=== PATIENT | male | born 1960 | race Caucasian/White ===

== ENCOUNTER 2020-06-04 15:07 | Emergency (ER) | payer OTHER ==
[~2020-06-04] VITALS: Ht 185.4 cm; Wt 90.9 kg
[2020-06-04 19:17] LABS: CLARITY,URINE CLEAR; COLOR,URINE ORANGE
[2020-06-04 19:24] LABS: BACTERIA,URINE 0 /HPF (0-FEW); RBC,URINE 0 /HPF (0-2); WBC,URINE 0 /HPF (0-4)
[2020-06-04] MEDS ORDERED: TAMS0.4C97 PO (19:49)
--- NOTE | 2020-06-04 19:49 | PHYS DOC ---
Past Medical History Past Medical History: No Pertinent History Past Surgical History: No Surgical History Smoking Status: Never Smoker Alcohol Use: Occasionally Drug Use: None General Adult EDM: Chief Complaint: URINARY RETENTION HPI: HPI: Patient is a 59 year old male who presents with urinary retention. Patient describes a progressive decrease in urinary stream with complete cessation of stream beginning last night. He describes 9/10 pain currently with no relief after taking Aleve and over the counter Azo. This has never happened to him before and he has no history of prostate issues. He reports having his last prostate exam years ago. Denies fever/chills. Review of Systems: Review of Systems: Constitutional: Denies fever or chills HENT: Denies nasal congestion or sore throat Respiratory: Denies cough or shortness of breath Cardiovascular: Denies chest pain or palpitations GI: Reports abdominal pain and nausea, denies vomiting : Reports dysuria, denies hematuria Musculoskeletal: Denies back pain or joint pain Neurologic: Denies headache, focal weakness or sensory changes Complete systems were reviewed and found to be within normal limits, except as documented in this note. Allergies: Allergies: Allergies Coded Allergies Type Severity Reaction Last Updated Verified No Known Drug Allergies 06/04/20 No Physical Exam: PE: Constitutional: Well developed, well nourished, no acute distress, non-toxic appearance HENT: Normocephalic, atraumatic Eyes: Conjunctiva normal, no discharge Neck: Normal range of motion, no tenderness, supple Lungs & Thorax: No respiratory distress, equal chest rise and fall Abdomen: Distended suprapubic region which is discreetly tender to palpation Skin: Warm, dry, no erythema, no rash Back: No tenderness, no CVA tenderness Extremities: No tenderness, ROM intact, no edema Neurologic: Alert and oriented X 3, normal motor function, normal sensory function, no focal deficits noted Psychologic: Affect normal, judgment normal Current Patient Data: Labs: Laboratory Tests Test 06/04/20 19:10 Urine Collection Type Unknown Urine Color [place] Urine Clarity Clear Urine pH (<5.0-8.0) Urine Specific [place] (1.000-1.030) Urine Protein mg/dL (NEG-TRACE) Urine Glucose (UA) mg/dL (NEG) Urine Ketones (Stick) mg/dL (NEG) Urine Blood (NEG) Urine Nitrite (NEG) Urine Bilirubin (NEG) Urine Urobilinogen Dipstick mg/dL (0.2 mg/dL) Urine Leukocyte Esterase (NEG) Urine RBC 0 /HPF (0-2) Urine WBC 0 /HPF (0-4) Urine Squamous Epithelial Cells None /LPF Urine Bacteria 0 /HPF (0-FEW) Urine Mucus Slight /LPF Vital Signs: Vital Signs Date Time Temp Pulse Resp B/P (MAP) Pulse Ox O2 Delivery O2 Flow Rate FiO2 06/04/20 15:09 98.0 90 16 150/80 (103) 99 Room Air 98.0 Course & Med Decision Making: Course & Med Decision Making Pertinent Labs reviewed. (See chart for details) Patient is a 59 year old male who presents with urinary retention. Bladder scan demonstrates +999mL of fluid present. Baltazar catheter placed with 1300mL return of urine. Baltazar converted to leg bag. Flomax initiated. UA without evidence of infection. Patient stable for discharge with outpatient follow-up with PCP and urologist. Discussed findings and plan with patient, who acknowledges understanding and agreement. Lanny Disclaimer: Lanny Disclaimer: This electronic medical record was generated, in whole or in part, using a voice recognition dictation system. Departure Departure Impression: Primary Impression: Acute urinary retention Disposition: 01 DC HOME SELF CARE/HOMELESS Condition: STABLE Patient Instructions: Baltazar Catheter Care, Adult, Urinary Retention, Acute, Male, [id number] Additional Instructions: Please follow closely with your family physician. You may benefit from following with an urologist. Check with your insurance or family physician for a referral. May use over the counter Tylenol and/or Ibuprofen for pain or discomfort. Scripts Tamsulosin Hcl (FLOMAX) 0.4 Mg Cap.er.24h 1 CAP PO DAILY, #20 CAP Prov: KORY CARLIN DO 06/04/20 KORY CARLIN DO Jun 04, 2020 19:49
[2020-06-04 20:00] VITALS: BP 151/78
[2020-06-04] MEDS ORDERED: TAMSULOSIN 0.4 MG CAP.ER.24H. PO ONE (20:00)
== END 2020-06-04 19:59 | disposition home or self-care (01) ==
LOC: ER 15:07
DX: R33.9 Retention of urine, unspecified (principal); R10.30 Lower abdominal pain, unspecified
CPT/HCPCS: 51702; 81001; 99284